=== PATIENT | male | born 1930 | race Caucasian/White ===

== ENCOUNTER 2019-11-14 22:00 | Inpatient (IN) | payer MEDICARE, BC ==
[~2019-11-14] VITALS: Ht 188 cm; Wt 69.9 kg
--- NOTE | 2019-11-14 22:00 | NUR ---
ROCAEL FROM [facility] FOR ALOC AND SOB, pt to bed 8, placed on monitor, +hypotensive, pt on 6lpm nc, sat at >92%, pt aaox0, pt awake, pending er provider marci
[2019-11-14 22:21] LABS: HEMATOCRIT 35 % (39-51); HEMOGLOBIN 11.1 g/dL (13.5-17.5); LYMPHOCYTES # (AUTO) 1.8 /CMM (0.8-4.8); LYMPHOCYTES % (AUTO) 8.3 % (20.0-44.0); MEAN CORPUSCULAR HGB CONC 32 g/dl (31.0-36.0); MEAN CORPUSCULAR VOLUME 95 fL (80-96); MONOCYTES # (AUTO) 1.1 /CMM (0.1-1.30); NEUTROPHILS # (AUTO) 18.8 /CMM (1.8-8.9); NEUTROPHILS % (AUTO) 86.7 % (43.0-81.0); PLATELET COUNT (AUTO) 190 /CMM (150-450); RED BLOOD CELL COUNT(AUTO) 3.68 MIL/uL (4.5-6.0); WHITE BLOOD COUNT (AUTO) 21.7 K/uL (4.3-11.0)
[2019-11-14 22:23] LABS: APPEARANCE,URINE Cloudy (CLEAR); BILIRUBIN,URINE Negative (NEGATIVE); BLOOD, URINE Large Ery/uL (NEGATIVE); COLOR,URINE Yellow (YELLOW); KETONES,URINE Negative (NEGATIVE); LEUKOCYTE ESTERASE ,URINE Large (NEGATIVE); NITRITE, URINE Negative (NEGATIVE); PROTEIN,URINE 100 mg/dl (NEGATIVE); UGLUCOSE Negative (NEGATIVE)
[2019-11-14 22:30] LABS: CALCIUM, SERUM 9.4 mg/dL (8.5-10.1); CARBON DIOXIDE 35 mmol/L (21-32); CHLORIDE 105 mmol/L (98-107); CREATININE 1.4 mg/dL (0.6-1.3); GLUCOSE 170 mg/dL (74-106); POTASSIUM 4.6 mmol/L (3.5-5.1); SODIUM SERUM 140 mmol/L (136-145); UREA NITROGEN, BLOOD 47 mg/dL (7-18)
[2019-11-14] MEDS ORDERED: IV NS 0.9% 1,000 ML BAG IV ONE (22:30)
[2019-11-14 22:46] LABS: ALANINE AMINOTRANSFERASE 79 U/L (12-78); ALBUMIN 2.2 g/dL (3.4-5.0); ALKALINE PHOSPHATASE 94 U/L (46-116); ASPARTATE AMINOTRANSFERASE 46 U/L (15-37); B-TYPE NATRIURETIC PEPTIDE 7459 PG/ML (0-125); BILIRUBIN,DIRECT 0.1 mg/dL (0.0-0.2); BILIRUBIN,TOTAL 0.3 mg/dL (0.2-1.0); TOTAL PROTEIN, SERUM 7.3 g/dL (6.4-8.2)
[2019-11-14 22:48] LABS: BACTERIA,URINE Many /HPF (None Seen); SQUAMOUS EPITHELIAL CELL,UR Rare /HPF (None Seen); WBC,URINE TOO NUMEROUS TO COUN /HPF (0-3)
--- NOTE | 2019-11-14 22:54 | NUR ---
covid, rvp, and flu swab sent
--- NOTE | 2019-11-14 23:35 | NUR ---
ER DOC ON PHONE WITH HOSPITALIST
[2019-11-14] MEDS ORDERED: TERA5CAP4 GT (23:46)
[2019-11-14] MEDS ORDERED: FOLI0.8T GT (23:46)
[2019-11-14] MEDS ORDERED: LACT-96 GT (23:46)
[2019-11-14] MEDS ORDERED: PANT40TA2 GT (23:46)
[2019-11-14] MEDS ORDERED: FERR325T24 GT (23:46)
[2019-11-14] MEDS ORDERED: HYDR-4384 PO (23:46)
[2019-11-14] MEDS ORDERED: FAMO20TA8 GT (23:46)
[2019-11-14] MEDS ORDERED: ZINC220C6 GT (23:46)
[2019-11-14] MEDS ORDERED: ASCO-352 GT (23:46)
[2019-11-14] MEDS ORDERED: FURO40TA5 GT (23:46)
[2019-11-14] MEDS ORDERED: APIX5TAB GT (23:46)
[2019-11-15] VITALS (34 sets, daily range): BP systolic 55–146; BP diastolic 20–86
[2019-11-15] MEDS: PIPERACILLIN /TAZOBACTAM 3.375 G in IV D5W 50 ML IV ONE ×2 (00:05→02:05)
--- NOTE | 2019-11-15 00:05 | NUR ---
Stephany marcial in [facility] - 11/15/19 at 0230 by TAE END TIME FOR XIAO : 0035
[2019-11-15 00:21] LABS: ABG BASE EXCESS -0.9 mmol/L; ABG OXYGEN SATURATION 94.5 % (92.0-98.5); ABG PCO2 97.5 mmHg (35.0-45.0); ABG PH 7.115 (7.350-7.450); ABG PO2 94.1 mmHg (75.0-100.0); AaDO2 108.5 mmHg; COHb 0.3 % (0.5-1.5); MetHb 0.6 % (0.0-1.5); O2Hb 93.6 % (94.0-97.0); SITE, ABG Left Radial; VENT MODE, BG Nasal Cannula
[2019-11-15 00:25] LABS: C-REACTIVE PROTEIN 31.4 mg/dL (0.0-0.9)
[2019-11-15] MEDS ORDERED: VANCOMYCIN 1 GM in IV D5W 250 ML IV ONE (01:00)
--- NOTE | 2019-11-15 02:05 | NUR ---
END TIME FOR ZOSYN: 9500
[2019-11-15] MEDS ORDERED: PIPERACILLIN /TAZOBACTAM 3.375 G VIAL IV ONE (02:11)
[2019-11-15] MEDS ORDERED: VANCOMYCIN 1 GM VIAL ONE (02:11)
--- NOTE | 2019-11-15 02:58 | NUR ---
PT WSA SUCCESSFULLY INTUBATED BY DR. HUBER AT THE BED SIDE. SIZE:7.5, AT LIP: 23CM Addendum: 11/15/19 at 0307 by TAE CORRECTION : AT LIP: 25 CM
--- NOTE | 2019-11-15 03:00 | NUR ---
succhycoline 200mg ivp given under direct supervision of dr. harman at [id number]
--- NOTE | 2019-11-15 03:42 | NUR ---
report given to silvio banuelosedge burnisher uppers nurse for melissa pt will be transported to icu
--- NOTE | 2019-11-15 04:10 | NUR ---
RN/ICU-ADMITTED THIS 89 Y/O MALE FROM ER BY CHARLEE PER ACLS PROTOCOL. ON CONTINUOUS PER ETT BY RT AND IMMEDIATELY HOOKED UP TO THE VENT W/ INITIAL SETTINGS:AC:20, VT-500. FIO2-100%, PEER +5. SATS-96%. EKG SB W/ UNIFOCAL PVCS TRIGEMINY HR-51. BP-83/53. PT. RESTLESS BUT NON- INTERACTIVE, W/ BILATERAL SOFT WRIST RESTRAINTS ON. FULL CODE .AFEBRILE T-97.2/F. WILL MONITOR CLOSELY PER PROPOFOL. Addendum: 11/15/19 at 0744 by SAROJ PIENDA RN RN/ICU--[id number] NURSING FOCUS: ALTERED RESPIRATORY STATUS R/T DIAGNOSIS OF RESPIRATORY FAILURE, R/O COVID.
--- NOTE | 2019-11-15 04:21 | NUR ---
pt transported to icu
--- NOTE | 2019-11-15 04:45 | NUR ---
RN/ICU- PT. BP-74/44, HR-93. MARSHA DESAI NOTIFIED BY PHONE. W/ ORDERS FOR PRN LEVOPHED AND DIPRIVAN. WILL START AP APPROPRIATE.
[2019-11-15] MEDS ORDERED: NOREPINEPHRINE 8MG/250ML RTU 250 ML IV ONE (04:48)
[2019-11-15] MEDS ORDERED: PROPOFOL 100 ML IV PRN (05:00)
[2019-11-15] MEDS ORDERED: NOREPINEPHRINE 8 MG in IV NS 0.9% 242 ML IV PRN (05:00)
[2019-11-15] MEDS ORDERED: PHENYLEPHRINE 10 MG/ML VIAL ONE (05:10)
[2019-11-15 05:45] LABS: BASOPHILS % (AUTO) 0.1 % (0.0-2.0); EOSINOPHILS % (AUTO) 0.1 % (0.0-6.0); HEMATOCRIT 38 % (39-51); HEMOGLOBIN 12.1 g/dL (13.5-17.5); LYMPHOCYTES # (AUTO) 0.6 /CMM (0.8-4.8); MEAN CORPUSCULAR HGB CONC 32 g/dl (31.0-36.0); MEAN CORPUSCULAR VOLUME 95 fL (80-96); MONOCYTES # (AUTO) 0.3 /CMM (0.1-1.30); MONOCYTES % (AUTO) 2.4 % (2.0-12.0); NEUTROPHILS # (AUTO) 13.2 /CMM (1.8-8.9); NEUTROPHILS % (AUTO) 93.4 % (43.0-81.0); PLATELET COUNT (AUTO) 162 /CMM (150-450); RED BLOOD CELL COUNT(AUTO) 3.98 MIL/uL (4.5-6.0); WHITE BLOOD COUNT (AUTO) 14.1 K/uL (4.3-11.0)
[2019-11-15 05:52] LABS: CALCIUM, SERUM 8.6 mg/dL (8.5-10.1); CARBON DIOXIDE 31 mmol/L (21-32); CHLORIDE 105 mmol/L (98-107); CREATININE 1.4 mg/dL (0.6-1.3); GLUCOSE 169 mg/dL (74-106); MAGNESIUM 2.3 mg/dL (1.8-2.4); POTASSIUM 4.2 mmol/L (3.5-5.1); SODIUM SERUM 142 mmol/L (136-145); UREA NITROGEN, BLOOD 51 mg/dL (7-18)
[2019-11-15 05:54] LABS: CHOLESTEROL 56 mg/dL (<200); HDL CHOLESTEROL 33 mg/dL (40-60); LDL 25 mg/dL (0-99); TRIGLYCERIDES 28 mg/dL (30-150)
[2019-11-15] MEDS ORDERED: IV NS 0.9% 1,000 ML IV PRN (06:00)
[2019-11-15] MEDS ORDERED: ALBUTEROL SULFATE INH 18 GM HFA.AER.AD IH PRN (06:00)
[2019-11-15] MEDS ORDERED: ACETAMINOPHEN 325 MG TABLET PO PRN (06:00)
[2019-11-15] MEDS ORDERED: ONDANSETRON HCL/PF 4 MG/2 ML VIAL IVP PRN (06:00)
[2019-11-15] MEDS ORDERED: ZOLPIDEM TARTRATE 5 MG TABLET PO PRN (06:00)
[2019-11-15] MEDS ORDERED: MAGNESIUM HYDROXIDE 30 ML UDC PO PRN (06:00)
[2019-11-15] MEDS ORDERED: IPRATROPIUM BROMIDE 14 GM INHALER (or 12.9 GM) IH PRN (06:00)
--- NOTE | 2019-11-15 07:00 | NUR ---
RN/ICU- LATEST BP-144/55, HR- 123/MIN. ON LEVOPHED DRIP AT 0.1 MCG/KG/MIN. CALM AT THIS TIME. REPORT GIVEN TO RN. ARPI. [place]
[2019-11-15] MEDS ORDERED: ENOXAPARIN SODIUM 30 MG/0.3 ML DISP.SYRIN SQ SCH (08:00)
[2019-11-15] MEDS ORDERED: PIPERACILLIN /TAZOBACTAM 3.375 G in IV D5W 50 ML IV SCH ×2 (08:00→11:00)
--- NOTE | 2019-11-15 08:00 | NUR ---
ICU/RN: INITIAL NOTES,AM RECEIVED BEDSIDE REPORT FROM NIGHT NURSE. PT INTUBATED ETT 7.5/20CM AT THE LIP, ON VENT SETTINGS ORDERED. PT SINUS TACH ON TELE WITH ECTOPY NOTED. GTUBE NOTED, CLAMPED. BARRIGA CATH IN PLACE, MINIMAL URINE NOTED. PIVS PATENT AND INTACT, LEVO INFUSING FOR BP SUPPORT. PICC LINE PENDING, WILL CALL FAMILY FOR CONSENT. ALL NEEDS WILL BE ATTENDED TO, SAFETY MEASURE TAKEN, BED IN LOW POSITION, SIDE RAILS UP, CALL LIGHT WITHIN REACH. BILATERAL SOFT RESTRAINTS ON FOR SAFETY, ASSESSED PER PROTOCOL.
[2019-11-15 08:06] LABS: ABG BASE EXCESS -1.8 mmol/L; ABG OXYGEN SATURATION 92.8 % (92.0-98.5); ABG PCO2 68.8 mmHg (35.0-45.0); ABG PH 7.222 (7.350-7.450); ABG PO2 72.6 mmHg (75.0-100.0); AaDO2 571.6 mmHg; COHb 0.2 % (0.5-1.5); MetHb 0.5 % (0.0-1.5); O2Hb 92.2 % (94.0-97.0); PEEP,BG 5 cm H2O; SITE, ABG Left Brachial; VENT MODE, BG AC 20 500 100% +5
[2019-11-15] MEDS ORDERED: FEE PK DOSING 1 MIN EA MC ONE (08:22)
[2019-11-15] MEDS ORDERED: HYDROCORTISONE SOD SUCCINATE 100 MG/2 ML VIAL IV SCH (09:00)
[2019-11-15] MEDS ORDERED: PIPERACILLIN /TAZOBACTAM 3.375 G in IV D5W 100 ML IV SCH (09:00)
[2019-11-15] MEDS ORDERED: SUCCINYLCHOLINE CHLORIDE 20 MG/ML VIAL ONE (10:25)
--- NOTE | 2019-11-15 10:30 | NUR ---
ICU/RN: PT SINUS TACH ON TELE. NOTIFIED. ABG PENDING
[2019-11-15 11:12] LABS: COHb 0.2 % (0.5-1.5); PEEP,BG 8 cm H2O; VT, ABG 550 mL
[2019-11-15 11:44] LABS: ABG BASE EXCESS -3.7 mmol/L; ABG OXYGEN SATURATION 92.1 % (92.0-98.5); ABG PCO2 53.5 mmHg (35.0-45.0); ABG PH 7.268 (7.350-7.450); ABG PO2 64.9 mmHg (75.0-100.0); AaDO2 594.6 mmHg; MetHb 0.5 % (0.0-1.5); O2Hb 91.5 % (94.0-97.0); SITE, ABG Left Radial
[2019-11-15] MEDS ORDERED: ACETAMINOPHEN 650 MG/20.3 ML UDC GT PRN (12:00)
[2019-11-15 12:12] LABS: APPEARANCE,URINE TURBID (CLEAR); BILIRUBIN,URINE NEGATIVE (NEGATIVE); BLOOD, URINE MODERATE Ery/uL (NEGATIVE); COLOR,URINE YELLOW (YELLOW); KETONES,URINE NEGATIVE (NEGATIVE); LEUKOCYTE ESTERASE ,URINE SMALL (NEGATIVE); NITRITE, URINE NEGATIVE (NEGATIVE); PH,URINE 5.5 (5.0-8.0); PROTEIN,URINE 30 mg/dl (NEGATIVE); UGLUCOSE NEGATIVE (NEGATIVE)
[2019-11-15 12:16] LABS: CREATININE, URINE 102.6 MG/DL (30.0-125.0); URINE TOTAL PROTEIN 129.2 mg/dL (0-11.9)
[2019-11-15 12:25] LABS: BACTERIA,URINE 3+ /HPF (None Seen); WBC,URINE 21-50 /HPF (0-3)
[2019-11-15 12:26] LABS: MUCUS,URINE Few /LPF (None Seen); URINE AMORPHOUS URATE Few /HPF (None Seen)
[2019-11-15] MEDS ORDERED: FEE EMEERGENCY 1 MIN EA MC ONE (12:48)
[2019-11-15] MEDS ORDERED: EPINEPHRINE (1:10,000) SYRINGE 1 MG/10 ML DISP.SYRIN IVP ONE (12:48)
[2019-11-15] MEDS ORDERED: SODIUM BICARBONATE SYR 50 MEQ/50 ML DISP.SYRIN IV ONE (12:48)
--- NOTE | 2019-11-15 13:00 | NUR ---
ICU/RN: 1149-PT SINUS TACH ON TELE, WILL START ON DIPRIVAN PER FOR RATE CONTROL. PT WENT INTO VTACH, THEN PEA, CODE SERGIO CALLED. 1158-END OF CODE BLUE, PT PRONOUNCED BY ER MD RAPP. [facility] CALLED, FAMILY CALLED AND NOTIFIED. 1300-POST MORTEM CARE DONE. [place] RELE[place] [facility] [place]
[2019-11-15 13:14] LABS: EOSINOPHIL,URINE None Seen
[2019-11-15] MEDS ORDERED: VANCOMYCIN 1 GM in IV D5W 250 ML IV SCH (20:00)
== END 2019-11-15 12:00 | disposition expired | DRG 871 ==
LOC: ER 22:01 → ICU 11-15 02:43
PROVIDERS: ADMIT Nurse Practitioner Acute Care; ATTEND Internal Medicine
PROC: 5A1935Z Respiratory Ventilation, Less than 24 Consecutive Hours (ICD-10-PCS; principal; 2019-11-15)
PROC: 0BH18EZ Insertion of Endotracheal Airway into Trachea, Via Natural or Artificial Opening Endoscopic (ICD-10-PCS; 2019-11-15)
PROC: 5A12012 Performance of Cardiac Output, Single, Manual (ICD-10-PCS; 2019-11-15)
DX: A41.89 Other specified sepsis (principal); G93.41 Metabolic encephalopathy; E43 Unspecified severe protein-calorie malnutrition; R53.2 Functional quadriplegia; U07.1 COVID-19; J12.9 Viral pneumonia, unspecified; J96.01 Acute respiratory failure with hypoxia; J96.02 Acute respiratory failure with hypercapnia; I21.A1 Myocardial infarction type 2; R65.21 Severe sepsis with septic shock; N17.0 Acute kidney failure with tubular necrosis; D68.69 Other thrombophilia; N39.0 Urinary tract infection, site not specified; R64 Cachexia; J98.11 Atelectasis; Z68.1 Body mass index [BMI] 19.9 or less, adult; I13.0 Hypertensive heart and chronic kidney disease with heart failure and stage 1 through stage 4 chronic kidney disease, or unspecified chronic kidney disease; R13.10 Dysphagia, unspecified; N40.1 Benign prostatic hyperplasia with lower urinary tract symptoms; N18.9 Chronic kidney disease, unspecified; R53.1 Weakness; E88.09 Other disorders of plasma-protein metabolism, not elsewhere classified; D63.8 Anemia in other chronic diseases classified elsewhere; K21.9 Gastro-esophageal reflux disease without esophagitis; I35.0 Nonrheumatic aortic (valve) stenosis; I45.81 Long QT syndrome; I50.9 Heart failure, unspecified; I73.9 Peripheral vascular disease, unspecified
CPT/HCPCS: 31720; 36415; 36600; 71045-TC; 80048-TC; 80061-TC; 80076-TC; 81000-TC; 82533; 82570-TC; 82728-TC; 82803-TC; 82962-TC; 83605-TC; 83615-TC; 83735-TC; 83880; 84100-TC; 84155-TC; 84300-TC; 84484-TC; 85025-TC; 85730-TC; 86140-TC; 87040-TC; 87086-TC; 87186-TC; 92950-TC; 94002-TC; 94760-TC; 99082-TC; G0378; J0171; J0330; J1650; J1720; J2370; J2543; J3370; J3490; J7030; J7050; J7060